=== PATIENT | male | born 1995 | race Two or more races ===

== ENCOUNTER 2018-07-21 17:02 | Emergency (ER) | payer OTHER ==
[~2018-07-21] VITALS: Ht 170.2 cm; Wt 66.2 kg
[2018-07-21] MEDS ORDERED: HYDROcodone-ACET 5/325MG TAB PO ONE (22:30)
[2018-07-21] MEDS ORDERED: ONDANSETRON ODT 4 MG TAB PO ONE ×2 (22:30→22:43)
[2018-07-21] MEDS ORDERED: HYDROcodone-ACET 5/325MG TAB ONE (22:42)
[2018-07-21 22:52] VITALS: BP 130/82
== END 2018-07-21 22:53 | disposition home or self-care (01) ==
LOC: ER 17:24 → EEVIPCON 17:24 → ER 22:53
DX: S00.83XA Contusion of other part of head, initial encounter (principal); Y04.0XXA Assault by unarmed brawl or fight, initial encounter; Y93.89 Activity, other specified; Y99.8 Other external cause status; Y92.148 Other place in prison as the place of occurrence of the external cause
CPT/HCPCS: 70450; 70486; 99284; Q0162